=== PATIENT | female | born 2000 | race Caucasian/White ===

== ENCOUNTER 2025-10-28 18:11 | Outpatient (CLI) | payer OTHER, MEDICAID, SELFPAY ==
[2025-10-28 20:40] LABS: Bacterial Vaginosis* POSITIVE (Negative); Candida glab/krus NOT DETECTED (No Detected)
[2025-10-28 21:13] LABS: Chlamydia DNA Amplified* NOT DETECTED (No Detected); GC DNA Amplified* NOT DETECTED (No Detected)
== END 2025-10-28 18:12 | disposition home or self-care (01) ==
PROVIDERS: Visit Provider Registered Nurse
DX: N89.8 Other specified noninflammatory disorders of vagina (principal); R10.30 Lower abdominal pain, unspecified; Z11.3 Encounter for screening for infections with a predominantly sexual mode of transmission; Z13.6 Encounter for screening for cardiovascular disorders
CPT/HCPCS: 80061; 81513; 87481; 87491; 87591; 87661